=== PATIENT | female | born 1955 | race Caucasian/White ===

== ENCOUNTER 2020-04-09 12:51 | Observation (INO) | payer OTHER ==
[~2020-04-09] VITALS: Ht 175.3 cm; Wt 90.9 kg
[2020-04-09 13:00] VITALS: BP 126/58
[2020-04-09] MEDS ORDERED: TYLENOL W/CODEI1 TAB (13:09)
[2020-04-09 13:42] LABS: BASOPHILS 0.8 % (0-2); EOSINOPHILS 3.9 % (0-7); HEMATOCRIT 36.9 % (36.0-48.0); HEMOGLOBIN 12.3 g/dL (12-16); IMMATURE GRANULOCYTES 0.3 % (0-5); LYMPHOCYTES 20.8 % (15-50); MCH 29.1 pg (26.0-34.0); MCHC 33.3 g/dL (31.0-37.0); MCV 87.2 fL (80.0-100.0); MEAN PLATELET VOLUME 9.3 fL (7.4-10.4); MONOCYTES 9.2 % (2-11); PLATELET COUNT 304 10x3/uL (130-400); RBC 4.23 10x6/uL (4.00-5.40); RDW 13.4 % (11.5-14.5); WBC 10.3 10x3/uL (4.8-10.8)
[2020-04-09 13:46] LABS: CALC OSMOLALITY 273 mosm/kg (275-300); CALCIUM 8.9 mg/dL (8.5-10.1); CARBON DIOXIDE 31.1 mmol/L (21.0-32.0); CHLORIDE - SERUM 98 mmol/L (98-107); CREATININE - SERUM 0.8 mg/dL (0.6-1.3); GLUCOSE 228 mg/dL (74-106); INR 0.92 (0.85-1.17); POTASSIUM - SERUM 4.7 mmol/L (3.5-5.1); PROTIME 12.3 SECONDS (11.6-15.0); SODIUM 132 mmol/L (136-145); UREA NITROGEN 17 mg/dL (7-18); eGFR NON AFRICAN AMERICAN 77 mL/min (90-120)
[2020-04-09 13:47] LABS: APTT 26.9 SECONDS (22.8-39.4)
[2020-04-09 14:01] LABS: ALBUMIN 3.1 g/dL (3.4-5.0); ALKALINE PHOSPHATASE 79 U/L (30-120); ALT (SGPT) 21 U/L (10-68); BILIRUBIN - TOTAL 0.18 mg/dL (0.2-1.3); CKMB 1.9 U/L (0.0-3.6); CREATINE KINASE 51 UL (21-215); MAGNESIUM - SERUM 1.8 mg/dL (1.8-2.4); PROTEIN - SERUM 6.1 g/dL (6.4-8.2); TROPONIN-I < 0.017 ng/mL (0.000-0.060)
[2020-04-09 14:21] LABS: BILIRUBIN NEGATIVE (NEGATIVE); KETONE NEGATIVE (NEGATIVE); NITRITE NEGATIVE (NEGATIVE); UROBILINOGEN NORMAL mg/dL (< 2)
[2020-04-09 14:22] LABS: BACTERIA MODERATE HPF (NONE SEEN); EPITHELIAL CELLS 0-5 /hpf (0-5)
[2020-04-09 14:52] LABS: UDS - AMPHET NEGATIVE QUAL (NEGATIVE); UDS - BARB NEGATIVE QUAL (NEGATIVE); UDS - BENZO NEGATIVE QUAL (NEGATIVE); UDS - COCAINE NEGATIVE QUAL (NEGATIVE); UDS - OPIATE POSITIVE QUAL (NEGATIVE); UDS - PCP NEGATIVE QUAL (NEGATIVE); UDS - THC NEGATIVE QUAL (NEGATIVE)
[2020-04-09 17:07] VITALS: Ht 175.3 cm; Wt 90.9 kg
[2020-04-09 17:29] LABS: CKMB 1.5 U/L (0.0-3.6); CREATINE KINASE 47 UL (21-215)
[2020-04-09 17:30] LABS: TROPONIN-I 0.016 ng/mL (0.000-0.060)
--- NOTE | 2020-04-09 19:12 | NUR ---
PT CAME TO NURSES STATION AND ASKED A NURSE TO CALL HER RIDE "ROBB" TO COME PICK HER UP. PT WALKED OUT. ED NURSE TO PTS ROOM AND NOTED THAT THE PT'S IV WAS LAYING IN HER BED WITH CANNULA INTACT.
--- NOTE | 2020-04-09 19:17 | NUR ---
mee blanchard APRN notified of the patient leaving [facility], houseperson also notified
--- NOTE | 2020-04-10 13:57 | MORECARE ---
CASE MANAGEMENT DISCHARGE SUMMARY PATIENT: KEISHA MOODY UNIT: [id number] ADM DATE: 04/09/20 AGE: 64 : 59 SEX: F ROOM/BED: D[facility] AUTHOR: MAURO MCARTHUR PHYSICIAN: REFERRING PHYSICIAN: LISA LOPES DO DATE OF SERVICE: 04/10/20 Discharge Plan Patient Name: KEISHA MOODY Facility: [facility]:[place] : 1955 Planned Disposition: Anticipated Discharge Date: Discharge Date: 04/09/2020 Expected LOS: 0 Initial Reviewer: [email or web address] Initial Review Date: 04/10/2020 Generated: 04/10/20 2:56 pm Patient Name: KEISHA MOODY Page [phone] at 1357 All edits/amendments must be made on the electronic document DICTATION DATE: 04/10/20 1356 COSMETIC SALES ASSISTANT: MASOOD 04/10/20 1356 RPT#: [id number] DC DATE:04/09/20 STATUS: DIS IN [facility] [address] [place] [address] END OF REPORT
== END 2020-04-09 19:12 | disposition left against medical advice (07) ==
LOC: D.ER 12:51 → D.M2 18:00 → OBSVTIME 19:11 → D.M2 19:12
PROVIDERS: Family Medicine; ADMIT Family Medicine; ATTEND Family Medicine
DX: R07.9 Chest pain, unspecified (principal); N39.0 Urinary tract infection, site not specified; I11.0 Hypertensive heart disease with heart failure; I50.9 Heart failure, unspecified; E11.9 Type 2 diabetes mellitus without complications; E78.5 Hyperlipidemia, unspecified

== ENCOUNTER 2020-04-11 04:16 | Inpatient (IN) | payer OTHER ==
[~2020-04-11] VITALS: Ht 175.3 cm; Wt 109.1 kg
[~2020-04-11 04:16] MED LIST: TYLENOL W/CODEI1 TAB
--- NOTE | 2020-04-11 05:20 | NUR ---
PT AMBUALTED TO THE RESTROOM INDEPENDENTLY WITH CANE.
[2020-04-11 05:22] LABS: BASOPHILS 0.8 % (0-2); CALC OSMOLALITY 276 mosm/kg (275-300); CALCIUM 8.2 mg/dL (8.5-10.1); CARBON DIOXIDE 30.5 mmol/L (21.0-32.0); CHLORIDE - SERUM 99 mmol/L (98-107); CREATININE - SERUM 0.7 mg/dL (0.6-1.3); EOSINOPHILS 3.9 % (0-7); GLUCOSE 208 mg/dL (74-106); HEMATOCRIT 37.2 % (36.0-48.0); HEMOGLOBIN 12.4 g/dL (12-16); IMMATURE GRANULOCYTES 0.5 % (0-5); LYMPHOCYTES 24.4 % (15-50); MCH 28.6 pg (26.0-34.0); MCHC 33.3 g/dL (31.0-37.0); MCV 85.9 fL (80.0-100.0); MONOCYTES 11.6 % (2-11); NEUTROPHILS 58.8 % (40-80); PLATELET COUNT 330 10x3/uL (130-400); POTASSIUM - SERUM 4.1 mmol/L (3.5-5.1); RBC 4.33 10x6/uL (4.00-5.40); RDW 13.3 % (11.5-14.5); SODIUM 135 mmol/L (136-145); UREA NITROGEN 15 mg/dL (7-18); WBC 8.6 10x3/uL (4.8-10.8); eGFR NON AFRICAN AMERICAN 90 mL/min (90-120)
[2020-04-11 05:36] LABS: APTT 25.6 SECONDS (22.8-39.4); INR 0.9 (0.85-1.17); PROTIME 12.1 SECONDS (11.6-15.0)
[2020-04-11 05:37] LABS: ALBUMIN 3.2 g/dL (3.4-5.0); ALKALINE PHOSPHATASE 73 U/L (30-120); ALT (SGPT) 21 U/L (10-68); BILIRUBIN - TOTAL 0.15 mg/dL (0.2-1.3); CKMB 1.9 U/L (0.0-3.6); CREATINE KINASE 53 UL (21-215); PRO BNP 2193 pg/mL (0-125); PROTEIN - SERUM 6.4 g/dL (6.4-8.2)
[2020-04-11 05:43] LABS: TROPONIN-I < 0.017 ng/mL (0.000-0.060)
[2020-04-11 05:48] LABS: D-DIMER-QUANTITATIVE 0.52 ug/mLFEU (0.20-0.54)
--- NOTE | 2020-04-11 07:16 | NUR ---
REPORT GIVEN TO KEISHA ROBERTO
[2020-04-11 07:30] VITALS: BP 126/67
--- NOTE | 2020-04-11 07:30 | NUR ---
ASSUMED CARE OF PT. A/A/OX3. C/O RIGHT ANKLE PAIN "I HAVE RESTLESS LEGS" RESP EVEN/UNLABORED.VSS. \\\\
--- NOTE | 2020-04-11 08:30 | NUR ---
walking boot placed to lle. instr pt on use and rationale/ verb under
--- NOTE | 2020-04-11 09:14 | NUR ---
BS REPORT TO EFRAÍN, RN
[2020-04-11 09:46] VITALS: BP 142/67
--- NOTE | 2020-04-11 11:31 | NUR ---
FSBS 139 PT SITTING UP IN BED. NO DISTRESS NOTED. COLOR WNL. PT REQUESTING THE PHONE MOVED CLOSER AND WATER. PT PROVIDED WITH BOTH.
--- NOTE | 2020-04-11 11:45 | NUR ---
PT PROVIDED WITH MEAL TRAY.
--- NOTE | 2020-04-11 12:50 | NUR ---
PT REQUESTING NICOTINE PATCH. CONTACTED DR. RICAROD NEW ORDERS GIVEN
--- NOTE | 2020-04-11 14:08 | NUR ---
REPORT CALLED TO LEONARD
--- NOTE | 2020-04-11 14:08 | NUR ---
COVID SWAB SENT TO LAB
--- NOTE | 2020-04-11 15:30 | NUR ---
PT ARRIVED TO FLOOR VIA WHEELCHAIR WITH HOSPITAL STAFF ORIENTED TOO ROOM CALL LIGHT IN REACH
--- NOTE | 2020-04-11 18:04 | NUR ---
DR HOLLOWAY IN ROOM WITH PT
--- NOTE | 2020-04-11 19:30 | NUR ---
ALERT UP WALKING IN ROOM WITH WALKING BOOT IN USE TO LEFT FOOT, HAS BRACE IN USE TO RIGHT FOOT, STATES THEY BOTH HURT, REQUESTING PAIN MEDS INSTRUCTED WILL GIVE SOON TIME, ASSESSMENT, CALL LIGHT IN REACH
[2020-04-11 19:51] VITALS: BP 140/76
[2020-04-11 22:44] VITALS: BP 140/76; Ht 175.3 cm; Wt 109.1 kg
[2020-04-12 04:37] VITALS: BP 169/87
--- NOTE | 2020-04-12 07:55 | NUR ---
PT AMBULATING IN ROOM. NO ACUTE DISTRESS. PT BLUNT WITH REQUEST. REPORTS PAIN 4/10 AT THIS TIME. SALINE LOC TO RIGHT AC SITE WITHOUT REDNESS OR EDEMA. WALKING BOOT NOTED TO LEFT LOWER EXTREMITY, ANKLE BRACE TO RIGHT ANKLE. AMBULATING WITH CANE. DENIES FURTHER NEEDS AT THIS TIME. CL WITHIN REACH. ENCOURAGED TO CALL WITH NEEDS. CONTINUE POC
[2020-04-12] MEDS ORDERED: HYDROCODON-ACE1 EAC7 PO (08:18)
[2020-04-12 08:20] LABS: BASOPHILS 0.7 % (0-2); EOSINOPHILS 3.9 % (0-7); HEMATOCRIT 39.3 % (36.0-48.0); IMMATURE GRANULOCYTES 0.3 % (0-5); LYMPHOCYTES 27.8 % (15-50); MCH 28.5 pg (26.0-34.0); MCHC 33.1 g/dL (31.0-37.0); MCV 86.2 fL (80.0-100.0); MEAN PLATELET VOLUME 9.2 fL (7.4-10.4); MONOCYTES 9.9 % (2-11); NEUTROPHILS 57.4 % (40-80); PLATELET COUNT 358 10x3/uL (130-400); RBC 4.56 10x6/uL (4.00-5.40); RDW 13.7 % (11.5-14.5)
[2020-04-12 08:38] VITALS: BP 130/72
[2020-04-12 08:44] LABS: CALCIUM 8.9 mg/dL (8.5-10.1); CARBON DIOXIDE 29.5 mmol/L (21.0-32.0); CHLORIDE - SERUM 97 mmol/L (98-107); CREATININE - SERUM 0.8 mg/dL (0.6-1.3); GLUCOSE 226 mg/dL (74-106); SODIUM 132 mmol/L (136-145); eGFR NON AFRICAN AMERICAN 77 mL/min (90-120)
[2020-04-12 08:46] LABS: CALC OSMOLALITY 274 mosm/kg (275-300); UREA NITROGEN 22 mg/dL (7-18)
[2020-04-12 11:39] VITALS: BP 137/69
[2020-04-12 16:49] VITALS: BP 119/66
[2020-04-12] MEDS ORDERED: COREG 3.1253.125 MG PO (18:25)
[2020-04-12] MEDS ORDERED: ZYPREXA5 MG PO (18:25)
[2020-04-12] MEDS ORDERED: GLUCOPHAGE500 MG PO (18:34)
--- NOTE | 2020-04-12 19:14 | NUR ---
PLACED ON 2L NC DUE TO DECREASED [id number] [phone]
[2020-04-12 20:00] VITALS: BP 125/58
--- NOTE | 2020-04-12 20:00 | NUR ---
ALERT UP AMBULATIN IN ROOM, WALKING BOOT IN USE TO LEFT FOOT, SEE SHIFT ASSESSMENT, CALL LIGHT IN REACH
[2020-04-13 04:00] VITALS: BP 146/69
--- NOTE | 2020-04-13 08:10 | NUR ---
PT RESTING QUIETLY IN BED. REPORTS PAIN 5/10 AT THIS TIME, REQUESTING PAIN MEDICATION. INSTRUCTED PT ON LAST DOSE OF PAIN MED ADMINISTERED AND WHEN COULD BE ADMINISTERED AGAIN. PT REPORTS UNDERSTANDING. SALINE LOC IN PLACE TO RIGHT AC. SITE WITHOUT REDNESS OR EDEMA. DENIES FURTHER NEEDS AT THIS TIME. CL WITHIN REACH. ENCOURAGED TO CALL WITH NEEDS.
[2020-04-13 08:40] VITALS: BP 139/52
[2020-04-13 11:47] VITALS: BP 138/58
[2020-04-13] MEDS ORDERED: NICODERM CQ1 EAC2 TOPICAL (14:02)
== END 2020-04-13 16:47 | disposition home or self-care (01) | DRG 562 ==
LOC: D.ER 04:16 → D.M3 06:52 → D.EDHOLD 06:52 → D.M3 13:15
PROVIDERS: Emergency Medicine; Family Medicine; ADMIT Legal Medicine; ATTEND Legal Medicine
DX: S82.402A Unspecified fracture of shaft of left fibula, initial encounter for closed fracture (principal); I50.31 Acute diastolic (congestive) heart failure; X58.XXXA Exposure to other specified factors, initial encounter; I11.0 Hypertensive heart disease with heart failure; E11.9 Type 2 diabetes mellitus without complications; Z72.0 Tobacco use

== ENCOUNTER 2020-05-03 15:58 | Emergency (ER) | payer OTHER ==
[~2020-05-03] VITALS: Ht 175.3 cm; Wt 90.9 kg
[~2020-05-03 15:58] MED LIST changes: +COREG 3.1253.125 MG PO; +GLUCOPHAGE500 MG PO; +HYDROCODON-ACE1 EAC7 PO; +NICODERM CQ1 EAC2 TOPICAL; +ZYPREXA5 MG PO
[2020-05-03 16:18] VITALS: BP 156/99; Ht 175.3 cm; Wt 90.9 kg
[2020-05-03] MEDS ORDERED: ZPAK PO (18:54)
[2020-05-03] MEDS ORDERED: NAPROSYN500 MG PO (18:54)
[2020-05-03] MEDS ORDERED: MUCINEX DM ER1 EAC1 PO (18:54)
== END 2020-05-03 19:52 | disposition home or self-care (01) ==
LOC: D.ER 15:58
DX: J06.9 Acute upper respiratory infection, unspecified (principal); R51.9 Headache, unspecified; M25.562 Pain in left knee; E11.9 Type 2 diabetes mellitus without complications; I11.0 Hypertensive heart disease with heart failure; I50.9 Heart failure, unspecified; Z72.0 Tobacco use; Z79.84 Long term (current) use of oral hypoglycemic drugs

== ENCOUNTER 2020-05-09 09:51 | Emergency (ER) | payer OTHER ==
[~2020-05-09] VITALS: Ht 175.3 cm; Wt 94.1 kg
[~2020-05-09 09:51] MED LIST changes: +MUCINEX DM ER1 EAC1 PO; +NAPROSYN500 MG PO; +ZPAK PO
[2020-05-09 09:57] VITALS: Ht 175.3 cm; Wt 94.1 kg
[2020-05-09] MEDS ORDERED: GLUCOPHAGE500 MG PO (10:22)
[2020-05-09] MEDS ORDERED: COREG 3.1253.125 MG PO (10:22)
[2020-05-09 11:12] VITALS: BP 154/85
== END 2020-05-09 11:13 | disposition home or self-care (01) ==
LOC: D.ER 09:51
DX: S93.602A Unspecified sprain of left foot, initial encounter (principal); S82.402A Unspecified fracture of shaft of left fibula, initial encounter for closed fracture; E11.9 Type 2 diabetes mellitus without complications; Z72.0 Tobacco use; I50.9 Heart failure, unspecified; I11.0 Hypertensive heart disease with heart failure; W19.XXXA Unspecified fall, initial encounter; Y93.9 Activity, unspecified; Y92.9 Unspecified place or not applicable